=== PATIENT | male | born 2000 | race Caucasian/White ===

== ENCOUNTER 2021-03-16 15:51 | Inpatient (IN) | payer MEDICAID, OTHER ==
[~2021-03-16] VITALS: Ht 180.3 cm; Wt 131.0 kg
[2021-03-16 16:54] LABS: BASOPHILS % (AUTO) 0.6 % (0.0-2.0); EOSINOPHILS % (AUTO) 0.7 % (1.0-6.0); HEMATOCRIT 44.7 % (41-53); HEMOGLOBIN 15.5 g/dL (13.5-17.5); LYMPHOCYTES # (AUTO) 2.8 K/uL (1.0-4.8); LYMPHOCYTES % (AUTO) 20.4 % (22.0-44.0); MEAN CORPUSCULAR HEMOGLOBIN 29.6 pg (26.0-34.0); MEAN CORPUSCULAR HGB CONC 34.7 G/dL (31.0-37.0); MEAN CORPUSCULAR VOLUME 85 fL (80-100); MONOCYTES # (AUTO) 1.2 K/uL (0.1-1.0); MONOCYTES % (AUTO) 8.8 % (2.0-9.0); NEUTROPHILS # (AUTO) 9.4 K/uL (1.8-7.7); NEUTROPHILS % (AUTO) 69.5 % (40.0-70.0); PLATELET COUNT (AUTO) 303 K/uL (150-450); RED BLOOD CELL COUNT(AUTO) 5.24 MIL/uL (4.50-5.90); RED CELL DISTRIBUTION WIDTH 13.1 % (11.5-14.5)
[2021-03-16 17:01] LABS: ANION GAP 10 mmol/L (8-16); CALCIUM, TOTAL 9.6 mg/dL (8.8-10.5); CARBON DIOXIDE 26 mmol/L (22-29); CHLORIDE 104 mmol/L (98-107); CREATININE 1.15 mg/dL (0.60-1.30); GLOMERULAR FILTR. RATE CALC > 60 mL/min (>60); GLUCOSE,RANDOM 94 mg/dL (70-110); POTASSIUM 3.3 mmol/L (3.5-5.1); SODIUM SERUM 140 mmol/L (136-145); UREA NITROGEN, BLOOD 10 mg/dL (7-18)
[2021-03-16 17:12] LABS: ALANINE AMINOTRANSFERASE 47 U/L (12-78); ALBUMIN 4.1 g/dL (3.4-5.0); ALKALINE PHOSPHATASE 90 U/L (46-116); ASPARTATE AMINOTRANSFERASE 16 U/L (15-37); BILIRUBIN,TOTAL 0.5 mg/dL (0.1-1.0); THYROID STIMULATING HORMONE 1.81 uIU/mL (0.36-3.74); TOTAL PROTEIN, SERUM 8.6 g/dL (6.4-8.2)
[2021-03-16 17:21] LABS: COVID AG,FIA SOURCE NASOPHARYNGEAL
[2021-03-16 18:22] LABS: AMPHET/METH SCREEN,URINE NEGATIVE (NEGATIVE); BARBITURATE SCREEN, URINE NEGATIVE (NEGATIVE); BENZODIAZEPINES SCREEN,URINE NEGATIVE (NEGATIVE); CANNABINOID SCREEN,URINE POSITIVE (NEGATIVE); COCAINE SCREEN,URINE NEGATIVE (NEGATIVE); METHADONE SCREEN, URINE NEGATIVE (NEGATIVE); OPIATE SCREEN,URINE NEGATIVE (NEGATIVE)
[2021-03-16 18:31] LABS: PHENCYCLIDINE SCREEN,URINE NEGATIVE (NEGATIVE)
[2021-03-16] MEDS ORDERED: LORazepam 2 MG TABLET PO ONE (19:15)
[2021-03-17] MEDS: LORazepam 2 MG TABLET PO PRN ×3 (02:04→22:46)
[2021-03-17] MEDS: QUEtiapine FUMARATE 100 MG TABLET PO PRN (02:04)
[2021-03-17 02:21] VITALS: BP 134/85
[2021-03-17 02:29] VITALS: BP 134/82
[2021-03-17] MEDS ORDERED: CloNIDine HCL 0.1 MG TABLET PO PRN (06:15)
[2021-03-17] MEDS ORDERED: MAGNESIUM HYDROXIDE SUSPENSION 30 ML UDCUP PO PRN (06:15)
[2021-03-17] MEDS ORDERED: LOPERAMIDE HCL 2 MG CAPSULE PO PRN (06:15)
[2021-03-17] MEDS ORDERED: IBUPROFEN 600 MG TABLET PO PRN (06:15)
[2021-03-17] MEDS ORDERED: BACITRACIN 28 GM OINTMENT TP PRN (06:15)
[2021-03-17] MEDS ORDERED: MAG HYDROX/AL HYDROX/SIMETH ES 30 ML SUSPENSION UDCUP PO PRN (06:15)
[2021-03-17] MEDS ORDERED: BENZOCAINE/MENTHOL LOZENGE PO PRN (06:15)
[2021-03-17] MEDS ORDERED: PETROLATUM,WHITE 28 GM JELLY TP PRN (06:15)
[2021-03-17] MEDS ORDERED: ALBUTEROL SULFATE HFA 90 MCG/PUFF 8 GM INHALER IH PRN (06:15)
[2021-03-17] MEDS ORDERED: ACETAMINOPHEN 325 MG TABLET PO PRN (06:15)
[2021-03-17] MEDS ORDERED: DOCUSATE SODIUM 100 MG CAPSULE PO PRN (06:15)
[2021-03-17] MEDS ORDERED: OMEPRAZOLE 20 MG CAPSULE PO PRN (06:15)
[2021-03-17] MEDS ORDERED: ONDANSETRON HCL 4 MG TABLET PO PRN (06:15)
[2021-03-17 08:00] VITALS: BP 99/53
[2021-03-17 08:04] LABS: CHOL/HDL RATIO 3.9 (4.2-7.3)
[2021-03-17 10:52] VITALS: BP 106/51
[2021-03-17 16:30] VITALS: BP 121/78
[2021-03-18 06:10] VITALS: BP 126/78
[2021-03-18 08:35] VITALS: BP 105/55
[2021-03-18] MEDS: HydrOXYzine PAMOATE 25 MG CAPSULE PO SCH ×3 (09:16→16:38)
[2021-03-18 11:35] VITALS: BP 145/68
[2021-03-18] MEDS: LORazepam 2 MG TABLET PO PRN ×2 (11:41→16:38)
[2021-03-18] MEDS: QUEtiapine FUMARATE 100 MG TABLET PO PRN ×2 (14:01→22:06)
[2021-03-18 16:20] VITALS: BP 104/61
[2021-03-19 06:14] VITALS: BP 110/61
[2021-03-19 08:25] VITALS: BP 127/80
[2021-03-19] MEDS: HydrOXYzine PAMOATE 25 MG CAPSULE PO SCH ×3 (09:15→16:30)
[2021-03-19] MEDS: LORazepam 2 MG TABLET PO PRN ×2 (12:06→22:06)
[2021-03-19 16:33] VITALS: BP 132/75
[2021-03-19 23:57] VITALS: BP 111/71
[2021-03-20 08:27] VITALS: BP 122/58
[2021-03-20] MEDS: HydrOXYzine PAMOATE 25 MG CAPSULE PO SCH ×3 (09:12→16:37)
[2021-03-20] MEDS: LORazepam 2 MG TABLET PO PRN ×2 (14:29→21:59)
[2021-03-20 17:07] VITALS: BP 112/67
[2021-03-20 23:58] VITALS: BP 103/58
[2021-03-21 08:26] VITALS: BP 130/76
[2021-03-21] MEDS: HydrOXYzine PAMOATE 25 MG CAPSULE PO SCH ×3 (08:40→16:33)
[2021-03-21 09:56] LABS: GLUCOMETER DEV NAME(LOC) POC.BV
[2021-03-21] MEDS: LORazepam 2 MG TABLET PO PRN ×2 (12:51→20:14)
[2021-03-21 16:26] VITALS: BP 133/104
[2021-03-21 20:09] VITALS: BP 123/72
[2021-03-22 06:00] VITALS: BP 111/60
[2021-03-22] MEDS: HydrOXYzine PAMOATE 25 MG CAPSULE PO SCH ×2 (08:49→12:30)
[2021-03-22 08:52] VITALS: BP 112/69
== END 2021-03-22 13:14 | disposition home or self-care (01) | DRG 750 ==
LOC: EMS 15:53 → B2X 20:00
PROVIDERS: ADMIT Psychiatry & Neurology Psychiatry; ATTEND Psychiatry & Neurology Psychiatry
DX: F25.0 Schizoaffective disorder, bipolar type (principal); E66.9 Obesity, unspecified; E87.6 Hypokalemia; G47.00 Insomnia, unspecified; Z20.822 Contact with and (suspected) exposure to COVID-19; K59.00 Constipation, unspecified; Z87.891 Personal history of nicotine dependence; Z68.41 Body mass index [BMI] 40.0-44.9, adult
CPT/HCPCS: 80053; 80061; 84132; 84443; 85025; 99285; G0480; J3535

== ENCOUNTER 2021-03-22 20:52 | Inpatient (IN) | payer MEDICAID, OTHER ==
[~2021-03-22] VITALS: Ht 180.3 cm; Wt 132.5 kg
[2021-03-22 22:30] LABS: AMPHET/METH SCREEN,URINE NEGATIVE (NEGATIVE); BARBITURATE SCREEN, URINE NEGATIVE (NEGATIVE); BENZODIAZEPINES SCREEN,URINE NEGATIVE (NEGATIVE); CANNABINOID SCREEN,URINE POSITIVE (NEGATIVE); COCAINE SCREEN,URINE NEGATIVE (NEGATIVE); METHADONE SCREEN, URINE NEGATIVE (NEGATIVE); OPIATE SCREEN,URINE NEGATIVE (NEGATIVE)
[2021-03-22 22:32] LABS: PHENCYCLIDINE SCREEN,URINE NEGATIVE (NEGATIVE)
[2021-03-22 22:32] LABS: BASOPHILS % (AUTO) 0.8 % (0.0-2.0); EOSINOPHILS % (AUTO) 0.6 % (1.0-6.0); HEMATOCRIT 46.3 % (41-53); HEMOGLOBIN 16.4 g/dL (13.5-17.5); LYMPHOCYTES # (AUTO) 2.5 K/uL (1.0-4.8); LYMPHOCYTES % (AUTO) 22.6 % (22.0-44.0); MEAN CORPUSCULAR HEMOGLOBIN 30.3 pg (26.0-34.0); MEAN CORPUSCULAR HGB CONC 35.3 G/dL (31.0-37.0); MEAN CORPUSCULAR VOLUME 86 fL (80-100); MONOCYTES # (AUTO) 1.4 K/uL (0.1-1.0); MONOCYTES % (AUTO) 12.4 % (2.0-9.0); NEUTROPHILS % (AUTO) 63.6 % (40.0-70.0); PLATELET COUNT (AUTO) 309 K/uL (150-450); RED BLOOD CELL COUNT(AUTO) 5.39 MIL/uL (4.50-5.90); RED CELL DISTRIBUTION WIDTH 13.1 % (11.5-14.5)
[2021-03-22 22:45] LABS: COVID AG,FIA SOURCE NASAL SWAB
[2021-03-22 22:49] LABS: ANION GAP 7 mmol/L (8-16); CALCIUM, TOTAL 9.6 mg/dL (8.8-10.5); CARBON DIOXIDE 27 mmol/L (22-29); CHLORIDE 103 mmol/L (98-107); CREATININE 0.92 mg/dL (0.60-1.30); GLOMERULAR FILTR. RATE CALC > 60 mL/min (>60); GLUCOSE,RANDOM 95 mg/dL (70-110); POTASSIUM 4.1 mmol/L (3.5-5.1); SODIUM SERUM 137 mmol/L (136-145); UREA NITROGEN, BLOOD 15 mg/dL (7-18)
[2021-03-22 22:51] LABS: ALANINE AMINOTRANSFERASE 34 U/L (12-78); ALBUMIN 4.2 g/dL (3.4-5.0); ALKALINE PHOSPHATASE 100 U/L (46-116); ASPARTATE AMINOTRANSFERASE 12 U/L (15-37); BILIRUBIN,TOTAL 0.4 mg/dL (0.1-1.0); TOTAL PROTEIN, SERUM 8.7 g/dL (6.4-8.2)
[2021-03-23] MEDS: ZOLPIDEM TARTRATE 10 MG TABLET PO PRN (00:28)
[2021-03-23 00:58] VITALS: BP 152/91
[2021-03-23 01:11] LABS: SALICYLATE < 2.8 mg/dL (2.8-20.0)
[2021-03-23 01:14] LABS: ACETAMINOPHEN < 2 mcg/mL (10-30)
[2021-03-23] MEDS ORDERED: INFLUENZA VIRUS VACCINE QVS 2021-22 (6MO+)/PF 60 MCG/0.5 ML SYRINGE IM. ONE (01:30)
[2021-03-23 04:32] LABS: APPEARANCE,URINE TURBID (CLEAR); BILIRUBIN,URINE NEGATIVE (NEGATIVE); GLUCOSE, URINE (UA) NEGATIVE (NEGATIVE); KETONES,URINE NEGATIVE (NEGATIVE); LEUKOCYTE ESTERASE ,URINE NEGATIVE (NEGATIVE); NITRATE,URINE NEGATIVE (NEGATIVE); OCCULT BLOOD,URINE NEGATIVE (NEGATIVE); PROTEIN,URINE NEGATIVE (NEGATIVE); UROBILINOGEN,URINE 0.2 mg/dL (<=1.0)
[2021-03-23 07:33] LABS: CHOL/HDL RATIO 3.7 (4.2-7.3)
[2021-03-23 08:30] VITALS: BP 118/62
[2021-03-23] MEDS: LORazepam 2 MG TABLET PO PRN ×2 (12:51→17:38)
[2021-03-23 16:10] VITALS: BP 128/82
[2021-03-23] MEDS ORDERED: BENZOCAINE/MENTHOL LOZENGE PO PRN (20:30)
[2021-03-23] MEDS ORDERED: MAGNESIUM HYDROXIDE SUSPENSION 30 ML UDCUP PO PRN (20:30)
[2021-03-23] MEDS ORDERED: MAG HYDROX/AL HYDROX/SIMETH ES 30 ML SUSPENSION UDCUP PO PRN (20:30)
[2021-03-23] MEDS ORDERED: ALBUTEROL SULFATE HFA 90 MCG/PUFF 8 GM INHALER IH PRN (20:30)
[2021-03-23] MEDS ORDERED: CloNIDine HCL 0.1 MG TABLET PO PRN (20:30)
[2021-03-23] MEDS ORDERED: DOCUSATE SODIUM 100 MG CAPSULE PO PRN (20:30)
[2021-03-23] MEDS ORDERED: IBUPROFEN 600 MG TABLET PO PRN (20:30)
[2021-03-23] MEDS ORDERED: ACETAMINOPHEN 325 MG TABLET PO PRN (20:30)
[2021-03-23] MEDS ORDERED: LOPERAMIDE HCL 2 MG CAPSULE PO PRN (20:30)
[2021-03-23] MEDS ORDERED: OMEPRAZOLE 20 MG CAPSULE PO PRN (20:30)
[2021-03-23] MEDS ORDERED: BACITRACIN 28 GM OINTMENT TP PRN (20:30)
[2021-03-23] MEDS ORDERED: PETROLATUM,WHITE 28 GM JELLY TP PRN (20:30)
[2021-03-23] MEDS ORDERED: ONDANSETRON HCL 4 MG TABLET PO PRN (20:30)
[2021-03-24 00:39] VITALS: BP 119/60
[2021-03-24] MEDS: ZOLPIDEM TARTRATE 10 MG TABLET PO PRN (00:44)
[2021-03-24 09:47] VITALS: BP 115/72
[2021-03-24] MEDS: LORazepam 2 MG TABLET PO PRN ×2 (13:39→17:41)
[2021-03-24 16:34] VITALS: BP 139/85
[2021-03-24] MEDS: QUEtiapine FUMARATE 100 MG TABLET PO PRN (18:15)
[2021-03-25 09:12] VITALS: BP 106/62
[2021-03-25] MEDS: LORazepam 2 MG TABLET PO PRN ×2 (11:07→20:15)
[2021-03-25 16:00] VITALS: BP 117/57
[2021-03-25] MEDS: QUEtiapine FUMARATE 100 MG TABLET PO PRN (19:30)
[2021-03-25] MEDS: LURASIDONE HCL 20 MG TABLET PO SCH (20:15)
[2021-03-26 08:29] VITALS: BP 107/59
[2021-03-26] MEDS: LORazepam 2 MG TABLET PO PRN (13:06)
[2021-03-26 16:35] VITALS: BP 138/91
[2021-03-26] MEDS: LURASIDONE HCL 20 MG TABLET PO SCH (20:17)
[2021-03-26] MEDS: ZOLPIDEM TARTRATE 10 MG TABLET PO PRN (22:16)
[2021-03-27 08:00] VITALS: BP 103/54
[2021-03-27] MEDS: LORazepam 2 MG TABLET PO PRN (13:49)
[2021-03-27] MEDS: QUEtiapine FUMARATE 100 MG TABLET PO PRN (14:28)
[2021-03-27 16:58] VITALS: BP 135/58
[2021-03-27] MEDS: LURASIDONE HCL 20 MG TABLET PO SCH (20:12)
[2021-03-28] MEDS: LORazepam 2 MG TABLET PO PRN (10:15)
[2021-03-28] MEDS: QUEtiapine FUMARATE 100 MG TABLET PO PRN (10:15)
[2021-03-28 10:48] LABS: COVID AG,FIA SOURCE NASAL SWAB
[2021-03-28 16:00] VITALS: BP 149/93
[2021-03-28] MEDS: LURASIDONE HCL 20 MG TABLET PO SCH (20:08)
[2021-03-28] MEDS ORDERED: LURA20TA PO (21:22)
[2021-03-29] MEDS: LORazepam 2 MG TABLET PO PRN ×2 (09:25→19:00)
[2021-03-29] MEDS: QUEtiapine FUMARATE 100 MG TABLET PO PRN (09:25)
[2021-03-29 09:48] VITALS: BP 131/72
[2021-03-29 16:30] VITALS: BP 117/71
[2021-03-29] MEDS: LURASIDONE HCL 20 MG TABLET PO SCH (20:10)
[2021-03-29] MEDS: ZOLPIDEM TARTRATE 10 MG TABLET PO PRN (20:25)
[2021-03-30 08:52] VITALS: BP 107/60
[2021-03-30 17:05] VITALS: BP 118/63
[2021-03-30 17:07] VITALS: BP 118/63
[2021-03-31] MEDS ORDERED: THIAMINE 100 MG TABLET PO SCH (09:00)
== END 2021-03-30 19:05 | disposition home or self-care (01) | DRG 754 ==
LOC: EMS 20:56 → 3EX 03-23 00:01 → 3EI 03-26 14:00
PROVIDERS: ADMIT Psychiatry & Neurology Psychiatry; ATTEND Psychiatry & Neurology Psychiatry
DX: F32.9 Major depressive disorder, single episode, unspecified (principal); R45.851 Suicidal ideations; F41.0 Panic disorder [episodic paroxysmal anxiety]; K59.00 Constipation, unspecified; G47.00 Insomnia, unspecified; I10 Essential (primary) hypertension; Z20.822 Contact with and (suspected) exposure to COVID-19; F41.1 Generalized anxiety disorder; F12.10 Cannabis abuse, uncomplicated; E66.9 Obesity, unspecified; F17.210 Nicotine dependence, cigarettes, uncomplicated; Z71.51 Drug abuse counseling and surveillance of drug abuser; Z68.41 Body mass index [BMI] 40.0-44.9, adult
CPT/HCPCS: 80053; 80061; 81003; 85025; 87081; 93005; 99285; G0378; G0480; G0481; Q0162; Q9967

== ENCOUNTER 2021-04-16 20:55 | Emergency (ER) | payer MEDICAID, OTHER ==
[~2021-04-16] VITALS: Ht 180.3 cm; Wt 131.8 kg
[~2021-04-16 20:55] MED LIST: LURA20TA PO
[2021-04-16 21:41] LABS: COVID AG,FIA SOURCE NASAL SWAB
[2021-04-16 23:45] VITALS: BP 127/82
[2021-04-25] MEDS ORDERED: QUET25TA PO (12:25)
== END 2021-04-16 23:45 | disposition home or self-care (01) ==
LOC: EMS 20:58
DX: J02.9 Acute pharyngitis, unspecified (principal); F31.9 Bipolar disorder, unspecified; F41.9 Anxiety disorder, unspecified; Z87.891 Personal history of nicotine dependence; Z79.899 Other long term (current) drug therapy; Z20.822 Contact with and (suspected) exposure to COVID-19
CPT/HCPCS: 87430; 99283

== ENCOUNTER 2021-04-24 00:24 | Emergency (ER) | payer OTHER ==
[~2021-04-24] VITALS: Ht 180.3 cm; Wt 135.0 kg
[2021-04-24] MEDS ORDERED: LORazepam 1 MG TABLET PO ONE ×2 (02:45→04:30)
[2021-04-24] MEDS ORDERED: IBUPROFEN 400 MG TABLET PO ONE (02:45)
[2021-04-24 04:01] LABS: COVID AG,FIA SOURCE NASOPHARYNGEAL
[2021-04-24 04:30] VITALS: BP 148/75
[2021-04-25] MEDS ORDERED: QUET25TA PO (12:25)
== END 2021-04-24 05:21 | disposition home or self-care (01) ==
LOC: EMS 00:25
DX: J02.9 Acute pharyngitis, unspecified (principal); G47.00 Insomnia, unspecified; R45.851 Suicidal ideations; F31.9 Bipolar disorder, unspecified; F41.9 Anxiety disorder, unspecified; F12.90 Cannabis use, unspecified, uncomplicated; Z87.891 Personal history of nicotine dependence; Z20.822 Contact with and (suspected) exposure to COVID-19
CPT/HCPCS: 99284; Z7502; Z7610